=== PATIENT | female | born 2000 | race Caucasian/White ===

== ENCOUNTER 2020-03-07 21:55 | Emergency (ER) | payer SELFPAY ==
[~2020-03-07] VITALS: Ht 175.3 cm; Wt 84.1 kg
[2020-03-07 22:02] VITALS: BP 127/76; TEMP 97.9
[2020-03-08] MEDS ORDERED: AMOXICILLIN 8751 TAB PO (00:22)
[2020-03-08] MEDS ORDERED: NORCOELIX PO ×5 (00:22→09:58)
[2020-03-08 00:52] VITALS: PULSE 72
== END 2020-03-08 00:52 | disposition home or self-care (01) ==
LOC: COL.ER 21:55
DX: J03.90 Acute tonsillitis, unspecified (principal)

== ENCOUNTER 2021-08-04 10:15 | Emergency (ER) | payer SELFPAY ==
[~2021-08-04] VITALS: Ht 172.7 cm; Wt 95.5 kg
[~2021-08-04 10:15] MED LIST: AMOXICILLIN 8751 TAB PO; NORCOELIX PO
[2021-08-04 10:57] VITALS: BP 125/86; PULSE 82; TEMP 98.1
[2021-08-04 11:27] LABS: COLLECTION METHOD CLEAN CATCH
[2021-08-04 11:39] LABS: MUCOUS Present /lpf; PH 5 (5-8); URINE APPEARANCE Hazy; URINE BACTERIA Rare /hpf; URINE BILIRUBIN Negative (NEGATIVE); URINE BLOOD Negative (NEGATIVE); URINE COLOR Yellow; URINE GLUCOSE Negative (NEGATIVE); URINE KETONE Negative (NEGATIVE); URINE LEUKOCYTE ESTERASE 1+ (NEGATIVE); URINE NITRATE Negative (NEGATIVE); URINE PROTEIN(semi-quant) Negative (NEGATIVE); URINE RBC 0-2 /hpf; URINE UROBILINOGEN Negative (NEGATIVE)
== END 2021-08-04 12:06 | disposition left against medical advice (07) ==
LOC: COL.ER 10:15
PROVIDERS: Emergency Medicine
DX: R10.30 Lower abdominal pain, unspecified (principal); Z32.02 Encounter for pregnancy test, result negative